=== PATIENT | male | born 1990 | race Native Hawaiian/Other Pacific Islander ===

== ENCOUNTER 2022-05-16 15:00 | Emergency (ER) | payer BC | END 2022-05-16 15:59 | disposition home or self-care (01) | LOC: JP.ED 15:00 | DX: U07.1 COVID-19 (principal); F17.210 Nicotine dependence, cigarettes, uncomplicated | CPT/HCPCS: 99283; U0002 ==

== ENCOUNTER 2022-06-16 05:28 | Emergency (ER) | payer BC ==
[2022-06-16] MEDS ORDERED: Aspirin 81 MG Tab.Chew PO ONE (05:46)
[2022-06-16] MEDS ORDERED: Morphine 4 MG/ML Syringe IVPUSH PRN (05:46)
[2022-06-16 06:21] LABS: ESTIMATED GFR 82 mL/min (>60)
[2022-06-16 06:23] LABS: TROPONIN I HIGH SENSITIVITY < 4.0 pg/mL (<=60.3)
== END 2022-06-16 08:54 | disposition home or self-care (01) ==
LOC: JP.ED 05:28
DX: R07.9 Chest pain, unspecified (principal); F17.210 Nicotine dependence, cigarettes, uncomplicated; Z86.16 Personal history of COVID-19
CPT/HCPCS: 36415; 71045; 80053; 84484; 85025; 85379; 93005; 93010; 99283; 99285; A9270

== ENCOUNTER 2023-08-11 07:43 | Day surgery (SDC) | payer BC ==
[~2023-08-11 07:43] MED LIST: Bupivacaine 0.5%/EPINEPHrine 1:200,000 50 ML MDV ONE
[2023-08-11] MEDS: Lactated Ringers 1,000 ML IV SCH (08:00)
[2023-08-11] MEDS: Acetaminophen 500 MG Tab PO ONE (08:04)
[2023-08-11] MEDS ORDERED: fentaNYL 100 MCG/2 ML SDV ONE ×2 (08:45→09:13)
[2023-08-11] MEDS ORDERED: Propofol 200 MG/20 ML SDV ONE ×2 (08:45→09:23)
[2023-08-11] MEDS ORDERED: Midazolam 1 MG/ML 2 ML SDV ONE (08:45)
[2023-08-11] MEDS: ceFAZolin 2 GM in Premix Bag 1 BAG IV ONE (09:00)
[2023-08-11] MEDS: Lidocaine 1% with EPINEPHrine 1:100,000 50 ML MDV ONE (09:30)
[2023-08-11] MEDS: Bupivacaine 0.5% 50 ML MDV ONE (09:30)
[2023-08-11] MEDS: Acetaminophen/HYDROcodone 325-5 MG Tab PO ONE (10:40)
== END 2023-08-11 11:05 | disposition home or self-care (01) ==
LOC: JP.SDS 07:43
PROVIDERS: ATTEND Student in an Organized Health Care Education/Training Program
DX: L05.91 Pilonidal cyst without abscess (principal); K76.0 Fatty (change of) liver, not elsewhere classified; E78.5 Hyperlipidemia, unspecified; R05.9 Cough, unspecified; R73.03 Prediabetes; K21.9 Gastro-esophageal reflux disease without esophagitis; E66.9 Obesity, unspecified; F17.200 Nicotine dependence, unspecified, uncomplicated; Z79.899 Other long term (current) drug therapy
CPT/HCPCS: A9270-GY; J0690; J2250; J2704; J3010; J3490; J7120